=== PATIENT | male | born 1935 | race Caucasian/White ===

== ENCOUNTER → 2017-01-15 | Outpatient (CLI) | payer MEDICARE ==
[~2017-01-15] MED LIST: ASPI-COR81 M1 PO; CARBAMAZEPINE200 M2 PO; COQ10150 MG PO; FLAX SEED OIL1000 MG PO; LIPITOR40 MG PO; METOPROLOL50 MG PO; MULTIPLE VITAMI1 CAP PO; PAROXETINE20 MG PO; TAMSULOSIN HYD0.4 MG PO; VITAMIN D32000 I1 PO; ZANTAC150 MG PO
== END | disposition home or self-care (01) ==
LOC: CT 02:13
DX: N20.0 Calculus of kidney (principal); K57.30 Diverticulosis of large intestine without perforation or abscess without bleeding; R10.11 Right upper quadrant pain; R19.01 Right upper quadrant abdominal swelling, mass and lump; I25.10 Atherosclerotic heart disease of native coronary artery without angina pectoris; I10 Essential (primary) hypertension; Z90.49 Acquired absence of other specified parts of digestive tract

== ENCOUNTER → 2017-02-04 | Day surgery (SDC) | payer MEDICARE ==
[~2017-02-04] VITALS: Ht 177.8 cm; Wt 88.5 kg
[~2017-02-04] MED LIST changes: +TOPCARE OMEPRAZ20 MG PO
--- NOTE | ~2017-02-04 | O ---
[place], [place] OPERATIVE NOTE [id number] UNIT #: [id number] ROOM: DOCTOR: ALXEA RAMIREZ MD BIRTHDATE: [birth year] DOS: 02/04/2017 GASTROENDOSCOPIC REPORT INDICATIONS: The patient has presented with chief complaint of dysphagia to solid food, difficulty repeatedly with swallow. The patient with left lower quadrant and right lower quadrant pain. The patient has had a CT scan of the abdomen without any acute concerning finding. PAST MEDICAL HISTORY: Reflux, hypertension, hyperlipidemia, history of arthritis, tremens. SOCIAL HISTORY: Nonsmoker, nonalcohol consumer. PAST SURGICAL HISTORY: Cholecystectomy. ALLERGIES: To no known medication. FAMILY HISTORY: Noncontributory. PROCEDURE: Today's procedure part of investigation is panendoscopy plus biopsy plus balloon dilation. PREMEDICATION: Versed and Diprivan. SCOPE: Olympus forward-viewing gastroscope Q10 video. REPORT: After putting the patient in the left lateral position and application of lubricant to the scope, the scope was introduced; thereafter, under direct visualization, advanced through the length of the esophagus without difficulty. Esophageal stricture, particularly at distal esophagus which is benign noticed. Gastritis seen. Duodenal bulb, second and third part within normal limit. Antrum was biopsied for H. pylori. The patient was gradually extubated to proximal stomach, a balloon size 20 was introduced into the gastric pouch, up to size 18 was utilized and esophageal dilation was performed. The patient extubated, tolerated procedure well. IMPRESSION: Benign esophageal stricture, status post balloon dilation, gastritis, status post biopsy. PLAN AND DISCUSSION: Omeprazole 20 mg 1 q. day is going to be recommended. We are going to proceed with colonoscopy. Thank you very much indeed. GASTROENDOSCOPIC REPORT INDICATIONS: The patient has presented with chief complaint of abdominal pain undergoing investigation. [place], [place] OPERATIVE NOTE NAME: JARVIS TOLBERT UNIT #: [id number] ROOM: DOCTOR: ALEXA RAMIREZ MD BIRTHDATE: [birth year] PROCEDURE: Today's procedure part of investigation is colonoscopy plus polypectomy. PREMEDICATION: Versed and Diprivan. SCOPE: Olympus forward viewing colonoscope 10L video. REPORT: After putting the patient in the left lateral position and application of lubricant to the scope, the scope was introduced; thereafter, under direct visualization, advanced through the length of colon without difficulty. Colon mucosa and vascularity carefully examined. Severe diverticulosis coli with presence of diverticula of severe degree in the left transverse and ascending colon was identified. Base of the cecum explored, appendiceal orifice identified. Sessile polypoid lesion from hepatic flexure with piecemeal polypectomy was removed. The patient extubated, tolerated the procedure well. IMPRESSION: Severe diverticulosis coli. Sessile polypoid lesion, hepatic flexure, status post piecemeal polypectomy. PLAN AND DISCUSSION: High fiber diet. ACTIVITY: Ad shanti. FOLLOWUP: Routinely with you in office, p.r.n. visit with us in GI Clinic. Thank you very much indeed for your kind referral. ALEXA RAMIREZ MD CM:OPRECORD:OPERATIVE NOTE [phone] [facility] ALEXA RAMIREZ MD 02/04/171946 interface
[2017-02-04 15:10] VITALS: BP 147/62
[2017-02-04 16:48] VITALS: BP 121/76
[2017-02-04 17:03] VITALS: BP 124/71
[2017-02-04 17:18] VITALS: BP 128/70
[2017-02-04 17:33] VITALS: BP 126/72
== END | disposition home or self-care (01) ==
LOC: SDC 02-01 08:45
DX: K63.5 Polyp of colon (principal); K57.30 Diverticulosis of large intestine without perforation or abscess without bleeding; K29.50 Unspecified chronic gastritis without bleeding; K22.2 Esophageal obstruction; I10 Essential (primary) hypertension; K21.9 Gastro-esophageal reflux disease without esophagitis; E78.5 Hyperlipidemia, unspecified; M19.90 Unspecified osteoarthritis, unspecified site

== ENCOUNTER → 2017-05-05 | Outpatient (CLI) | payer MEDICARE ==
[2017-05-05 10:23] LABS: HEMOGLOBIN A1c 6.2 % (4.8-5.6)
[2017-05-09 19:07] LABS: METHYLMALONIC ACID 706961 206 nmol/L (0-378)
== END | disposition home or self-care (01) ==
LOC: LAB 09:28
PROVIDERS: Psychiatry & Neurology Neurology
DX: G60.9 Hereditary and idiopathic neuropathy, unspecified (principal); R20.2 Paresthesia of skin; R20.0 Anesthesia of skin

== ENCOUNTER → 2017-08-17 | Outpatient (CLI) | payer MEDICARE | END | disposition home or self-care (01) | LOC: CT 10:45 | DX: I67.82 Cerebral ischemia (principal); R29.898 Other symptoms and signs involving the musculoskeletal system; H81.20 Vestibular neuronitis, unspecified ear ==

== ENCOUNTER 2018-06-02 10:36 | Inpatient (IN) | payer MEDICARE ==
[~2018-06-02] VITALS: Ht 175.3 cm; Wt 89.1 kg
--- NOTE | ~2018-06-02 | PR ---
[place], [place] PROGRESS NOTE NAME: [facility] #: [id number] UNIT #: [id number] ROOM: 511 DOCTOR: LALO ARAUJO MD BIRTHDATE: [birth year] DOS: 06/03/2018 CARDIOLOGY PROGRESS NOTE SUBJECTIVE: The patient was seen today at his bedside with his in attendance. He is an 83-year-old man who presented to the hospital with syncopal episodes. Initially, we felt that this was due to dehydration. However, review of monitor strips and his echocardiogram shows that he is truly in atrial flutter with a slow ventricular response. The flutter waves were masked by his tremor, which was causing significant artifact on the electrocardiogram and hiding the flutter waves. Overnight, he did have several pauses. The longest of these was 4.6 seconds. His metoprolol was withheld and today his heart rate does seem to be better, although he continues to have occasional 2 second pauses. In addition, he is orthostatic. PHYSICAL EXAMINATION: VITAL SIGNS: Today his pulse is about 60 and irregular, blood pressure is 157/82. He is afebrile. NECK: Supple. He has no jugular distention. Carotids are full. LUNGS: Respirations are unlabored. His chest is clear. HEART: Has an irregular rhythm. He does have an occasional fourth heart sound. There is no third heart sound or significant murmur. ABDOMEN: Soft and normally active. EXTREMITIES: Showed no edema. DIAGNOSTIC STUDIES: Echocardiography done on 06/02/2018 showed mild left ventricular dilation with mild concentric left ventricular hypertrophy, ejection fraction is 65%. The left atrium is mildly dilated. Aortic valve leaflets are sclerotic, but open well. Review of his monitor strips does show atrial flutter with a slow ventricular response. IMPRESSION: 1. Near syncope and collapse. 2. Sick sinus syndrome. The patient does have atrial flutter with a very slow ventricular response. This is probably exacerbated by his beta josh therapy. PLAN: The patient is at increased risk for stroke with a [id number] score of 3. I have discussed anticoagulation therapy with him and he has agreed to start Xarelto. For now we will continue to monitor him and withhold all rate slowing medications. If his heart rate continues to improve, then upon discharge, we will have him wear a 30-day event recorder to make sure that he does not have tachycardia or bradycardia after discharge. If he continues to have severe bradycardia off of metoprolol, then he will be referred for pacemaker insertion. I thank the hospitalist physicians for asking our advice regarding his care. [place], [place] PROGRESS NOTE NAME: JARVIS TOLBERT UNIT #: [id number] ROOM: 511 DOCTOR: LALO ARAUJO MD BIRTHDATE: [birth year] LALO ARAUJO MD CM:PNTRANS [id number] LALO ARAUJO MD 06/03/182136 interface
--- NOTE | ~2018-06-02 | EKG ---
[place], [place] ELECTROCARDIOGRAM REPORT NAME: JARVIS TOLBERT UNIT #: [id number] ROOM: 511 DOCTOR: APRIL DRAFT REPORT BIRTHDATE: [birth year] [facility] Test Date: 2018-06-02 Test Time: 10:47:29 Pat Name: JARVIS TOLBERT Department: Room: 511 Gender: M [employer] Operator: SHAHLA : 1935 Requested By: JATIN JEFFERSON Order Number: [id number] Reading MD: Colt Lewis MD Measurements Intervals [place] Rate: 65 P: 0 AK: 69 QRS: 50 QRSD: 101 T: -76 QT: 395 QTc: 411 Interpretive Statements Marked baseline artifact makes interpretation difficult Possible atrial flutter Poor precordial R-wave progression Electronically Signed On 06-02-2018 15:18:42 PDT by Colt Lewis MD CM:EKGRPT:ELECTROCARDIOGRAM REPORT [id number] JATIN JEFFERSON EPIPHANY DRAFT REPORT JATIN JEFFERSON
--- NOTE | ~2018-06-02 | PR ---
[place], [place] PROGRESS NOTE NAME: JARVIS TOLBERT [facility] #: [id number] UNIT #: [id number] ROOM: 511 DOCTOR: LALO ARAUJO MD BIRTHDATE: [birth year] DOS: 06/04/2018 CARDIOLOGY PROGRESS NOTE SUBJECTIVE: The patient was seen at his bedside today on 06/04/2018 for followup of bradycardia and newly documented atrial flutter. His was in attendance. He is an 83-year-old man, who presented to the hospital with syncopal episodes. These were initially felt to be due to dehydration; however, review of monitor strips and his echocardiogram showed that he truly was having episodes of atrial flutter with a slow ventricular response. Flutter waves were masked by his tremor, which was causing significant artifact on the electrocardiogram and hiding the flutter waves. His beta-josh was stopped because he was having periods of severe bradycardia with pauses of up to 4.6 seconds. Within 36 hours, his heart rate improved and his resting pulse is now in the 60 to 80 range. He feels considerably better. PHYSICAL EXAMINATION: VITAL SIGNS: Today, his pulse is 70 and irregularly irregular, blood pressure is 123/83. He is afebrile. NECK: Supple. He has no jugular distention. Carotids are full. LUNGS: Respirations are unlabored. His chest is clear to auscultation and percussion. HEART: Has an irregularly irregular rhythm without murmurs or gallops. ABDOMEN: Soft and normally active. EXTREMITIES: Showed no edema. LABORATORY DATA: I reviewed his monitor today and he continues to have atrial flutter with slow ventricular response. IMPRESSION: 1. Near syncope with collapse. 2. Sick sinus syndrome. The patient has atrial flutter with slow ventricular response, probably exacerbated by beta-josh therapy. PLAN: No other cardiac workup is being considered as an inpatient. I believe the patient can be discharged to home at this time. We will continue his anticoagulation because of a CHADS-VASc score of 3. I will have him wear a 30-day event recorder (MCOT) after discharge. If he continues to have episodes of very fast or very slow heartbeats, we will refer him to Electrophysiology to consider placement of pacemaker and further medical therapy of his arrhythmias. I thank the hospitalist service for asking our advice regarding his care and I have discussed his management with the nurse practitioner, Tiara Reddy. [place], [place] PROGRESS NOTE NAME: JARVIS TOLBERT UNIT #: [id number] ROOM: 511 DOCTOR: LALO ARAUJO MD BIRTHDATE: [birth year] LALO ARAUJO MD CM:JEFFREY [id number] LALO ARAUJO MD 06/04/18 2344 interface
[2018-06-02 10:40] VITALS: BP 157/70
[2018-06-02] MEDS ORDERED: PAROXETINE20 MG PO (10:54)
[2018-06-02] MEDS ORDERED: OMEPRAZOLE40 MG PO (10:54)
[2018-06-02] MEDS ORDERED: LIPITOR40 MG PO (10:54)
[2018-06-02 10:55] LABS: BASO % 0.3 % (0.0-1.0); EOS # 0.1 10*3/uL (0.0-0.4); EOS % 0.8 % (1.0-4.0); HEMATOCRIT 47.1 % (42.0-52.0); HEMOGLOBIN 15.6 g/dl (14.0-18.0); LYMPH # 1.4 10*3/uL (1.3-4.4); LYMPH % 18.5 % (27.0-41.0); MEAN CELL VOLUME 97.7 fl (80.0-94.0); MEAN CORPUSCULAR HGB 32.4 pg (27.0-31.0); MEAN CORPUSCULAR HGB CONC 33.1 g/dl (33.0-37.0); MEAN PLATELET VOLUME 10.4 fl (9.6-12.3); MONO # 0.4 10*3/uL (0.1-1.0); MONO % 4.6 % (3.0-9.0); NEUT # 5.9 10*3/uL (2.3-7.9); NEUT % 75.3 % (47.0-73.0); PLATELET COUNT AUTOMATED 197 10*3/uL (130-400); RED BLOOD COUNT 4.82 10*6/uL (4.50-5.90); RED CELL DISTRI WIDTH 12.8 % (0-14.5); WHITE BLOOD COUNT 7.8 10*3/uL (4.8-10.8)
[2018-06-02] MEDS ORDERED: MULTIVITAMINS1 EAC5 PO (10:55)
[2018-06-02] MEDS ORDERED: TAMSULOSIN HCL0.4 MG PO (10:55)
[2018-06-02] MEDS ORDERED: METOPROLOL SUCC50 M1 PO (10:55)
[2018-06-02] MEDS ORDERED: ASPIRIN81 M1 PO (10:57)
[2018-06-02] MEDS ORDERED: CO Q10100 MG PO (10:57)
[2018-06-02] MEDS ORDERED: SV FLAXSEED OI1 EACH PO (10:57)
[2018-06-02] MEDS ORDERED: VITAMIN D32000 UNIT PO (10:58)
[2018-06-02] MEDS ORDERED: CINNAMON BARK1 GM MC (10:58)
[2018-06-02 11:05] LABS: ACT PARTIAL THROMBO TIME 25.9 SECONDS (20.8-31.5); INTERNATIONAL NORM RATIO 1.1 (2.0-3.5)
[2018-06-02 11:12] LABS: ALKALINE PHOSPHATASE 84 U/L (45-117); BUN 17 mg/dl (7-24); CHLORIDE 103 mmol/L (98-107); CREATININE 1.41 mg/dL (0.70-1.30); LIPASE 163 U/L (73-393); POTASSIUM 4.4 mmol/L (3.5-5.1); SGOT/AST 19 IU/L (3-35); SGPT/ALT 30 U/L (12-78); SODIUM 139 mmol/L (136-145); TOTAL PROTEIN 7.5 gm/dL (6.4-8.2)
[2018-06-02 11:13] LABS: TROPONIN I < 0.015 ng/ml (<0.045)
[2018-06-02 13:05] VITALS: BP 134/80
[2018-06-02 14:27] VITALS: BP 134/80
[2018-06-02 15:17] LABS: BILIRUBIN NEGATIVE (NEGATIVE); BLOOD NEGATIVE (NEGATIVE); CLARITY CLEAR (CLEAR); COLOR YELLOW (YELLOW); GLUCOSE NEGATIVE (NEGATIVE); KETONE NEGATIVE (NEGATIVE); LEUKO ESTERASE NEGATIVE (NEGATIVE); NITRITE NEGATIVE (NEGATIVE); UROBILINOGEN 0.2 E.U./dl (0.2-1.0)
[2018-06-02 15:26] LABS: EPITHELIAL CELLS 0-2; RBC 0-2 rbc/hpf (0-2); WBC 0-2 wbc/hpf (0-5)
[2018-06-02 15:27] LABS: BACTERIA TRACE; MUCOUS TRACE
[2018-06-02 16:00] VITALS: BP 119/94
[2018-06-02 20:00] VITALS: BP 164/77
[2018-06-03] VITALS: BP 134/75
[2018-06-03 06:14] LABS: BASO % 0.7 % (0.0-1.0); EOS # 0.1 10*3/uL (0.0-0.4); EOS % 1.2 % (1.0-4.0); HEMATOCRIT 42.1 % (42.0-52.0); LYMPH # 1.9 10*3/uL (1.3-4.4); LYMPH % 31.6 % (27.0-41.0); MEAN CELL VOLUME 97.9 fl (80.0-94.0); MEAN CORPUSCULAR HGB 32.6 pg (27.0-31.0); MEAN CORPUSCULAR HGB CONC 33.3 g/dl (33.0-37.0); MEAN PLATELET VOLUME 11.2 fl (9.6-12.3); MONO # 0.5 10*3/uL (0.1-1.0); MONO % 8.1 % (3.0-9.0); NEUT # 3.4 10*3/uL (2.3-7.9); NEUT % 57.9 % (47.0-73.0); PLATELET COUNT AUTOMATED 139 10*3/uL (130-400); RED CELL DISTRI WIDTH 13.1 % (0-14.5); WHITE BLOOD COUNT 5.9 10*3/uL (4.8-10.8)
[2018-06-03 06:33] LABS: ALBUMIN 3.5 gm/dl (3.1-4.5); CHLORIDE 108 mmol/L (98-107); POTASSIUM 4.7 mmol/L (3.5-5.1); SODIUM 144 mmol/L (136-145)
[2018-06-03 06:44] LABS: ALKALINE PHOSPHATASE 64 U/L (45-117); BUN 16 mg/dl (7-24); CHOLESTEROL 129 mg/dL (<200); FREE T4 1.09 ng/dl (0.76-1.46); HDL CHOLESTEROL 35 mg/dl (40-60); LDL CHOLESTEROL 48 mg/dL (9-159); PHOSPHOROUS 3.2 mg/dL (2.5-4.9); SGOT/AST 15 IU/L (3-35); SGPT/ALT 28 U/L (12-78); TOTAL PROTEIN 6.4 gm/dL (6.4-8.2); TRIGLYCERIDES 229 mg/dl (<150); VLDL CHOLESTEROL 46 mg/dL (6-40)
[2018-06-03 07:02] LABS: VITAMIN D, 25-HYDROXY 39.4 ng/mL (30-100)
[2018-06-03 08:00] VITALS: BP 149/73
[2018-06-03 12:00] VITALS: BP 157/82
[2018-06-03 16:00] VITALS: BP 146/77
[2018-06-03 20:00] VITALS: BP 153/88
[2018-06-04] VITALS: BP 152/76
[2018-06-04 08:00] VITALS: BP 162/82; BP 180/80
[2018-06-04] MEDS ORDERED: XARE20MG PO (08:17)
[2018-06-04 12:00] VITALS: BP 133/69
[2018-06-04 16:00] VITALS: BP 123/83
== END 2018-06-04 16:51 | disposition home or self-care (01) | DRG 308 ==
LOC: ED 10:36 → 5E 11:50 → EDHOLD 11:50 → 5E 12:11
PROVIDERS: Nurse Practitioner Family; Registered Nurse
DX: I48.92 Unspecified atrial flutter (principal); N17.0 Acute kidney failure with tubular necrosis; I49.5 Sick sinus syndrome; R07.9 Chest pain, unspecified; N18.3 Chronic kidney disease, stage 3 (moderate); E78.5 Hyperlipidemia, unspecified; F41.1 Generalized anxiety disorder; R55 Syncope and collapse; D53.9 Nutritional anemia, unspecified; K21.9 Gastro-esophageal reflux disease without esophagitis; F41.9 Anxiety disorder, unspecified; I12.9 Hypertensive chronic kidney disease with stage 1 through stage 4 chronic kidney disease, or unspecified chronic kidney disease; N40.0 Benign prostatic hyperplasia without lower urinary tract symptoms; G25.0 Essential tremor; Z90.49 Acquired absence of other specified parts of digestive tract; Z79.82 Long term (current) use of aspirin; Z79.899 Other long term (current) drug therapy

== ENCOUNTER → 2019-10-23 | Emergency (ER) | payer MEDICARE ==
[~2019-10-23] VITALS: Ht 175.2 cm; Wt 78.5 kg
[~2019-10-23] MED LIST changes: +ASPIRIN81 M1 PO; +CINNAMON BARK1 GM MC; +CO Q10100 MG PO; +METOPROLOL SUCC50 M1 PO; +MULTIVITAMINS1 EAC5 PO; +OMEPRAZOLE40 MG PO; +SV FLAXSEED OI1 EACH PO; +TAMSULOSIN HCL0.4 MG PO; +VITAMIN D32000 UNIT PO; +XARE20MG PO
[2019-10-23 10:21] LABS: BASO % 0.2 % (0.0-1.0); HEMATOCRIT 52.6 % (42.0-52.0); HEMOGLOBIN 17.5 g/dl (14.0-18.0); LYMPH # 1.5 10*3/uL (1.3-4.4); LYMPH % 9.1 % (27.0-41.0); MEAN CELL VOLUME 95.5 fl (80.0-94.0); MEAN CORPUSCULAR HGB 31.8 pg (27.0-31.0); MEAN CORPUSCULAR HGB CONC 33.3 g/dl (33.0-37.0); MEAN PLATELET VOLUME 10.2 fl (9.6-12.3); MONO # 1.1 10*3/uL (0.1-1.0); MONO % 6.5 % (3.0-9.0); NEUT # 13.5 10*3/uL (2.3-7.9); PLATELET COUNT AUTOMATED 261 10*3/uL (130-400); RED BLOOD COUNT 5.51 10*6/uL (4.50-5.90); RED CELL DISTRI WIDTH 13.5 % (0-14.5); WHITE BLOOD COUNT 16.2 10*3/uL (4.8-10.8)
[2019-10-23 10:37] LABS: ALBUMIN 3.6 gm/dl (3.1-4.5); ALKALINE PHOSPHATASE 203 U/L (45-117); BUN 45 mg/dl (7-24); CHLORIDE 102 mmol/L (98-107); POTASSIUM 4.9 mmol/L (3.5-5.1); SGOT/AST 43 IU/L (3-35); SGPT/ALT 130 U/L (12-78); SODIUM 137 mmol/L (136-145); TOTAL PROTEIN 7.8 gm/dL (6.4-8.2)
[2019-10-23 10:38] LABS: TROPONIN I < 0.015 ng/ml (<0.045)
[2019-10-23 10:45] LABS: ACT PARTIAL THROMBO TIME 29.5 SECONDS (20.0-32.1); INTERNATIONAL NORM RATIO 1.1 (2.0-3.5)
[2019-10-23 14:40] VITALS: BP 158/88
== END ==
LOC: ED 09:50
PROVIDERS: Emergency Medicine
DX: R42 Dizziness and giddiness (principal); R26.89 Other abnormalities of gait and mobility; R09.81 Nasal congestion; R51 Headache; R05 Cough; I12.9 Hypertensive chronic kidney disease with stage 1 through stage 4 chronic kidney disease, or unspecified chronic kidney disease; N18.9 Chronic kidney disease, unspecified; E78.1 Pure hyperglyceridemia; I48.91 Unspecified atrial fibrillation; Z79.899 Other long term (current) drug therapy

== ENCOUNTER 2019-11-24 08:52 | Emergency (ER) | payer MEDICARE ==
[~2019-11-24] VITALS: Ht 172.7 cm; Wt 81.6 kg
[2019-11-24 08:59] VITALS: BP 168/89
[2019-11-24 09:35] LABS: BASO % 0.3 % (0.0-1.0); EOS % 0.5 % (1.0-4.0); HEMATOCRIT 48.3 % (42.0-52.0); HEMOGLOBIN 15.7 g/dl (14.0-18.0); LYMPH # 1.1 10*3/uL (1.3-4.4); LYMPH % 17.6 % (27.0-41.0); MEAN CELL VOLUME 98.6 fl (80.0-94.0); MEAN CORPUSCULAR HGB CONC 32.5 g/dl (33.0-37.0); MONO # 0.4 10*3/uL (0.1-1.0); NEUT # 4.7 10*3/uL (2.3-7.9); NEUT % 74.6 % (47.0-73.0); PLATELET COUNT AUTOMATED 193 10*3/uL (130-400); RED CELL DISTRI WIDTH 13.5 % (0-14.5); WHITE BLOOD COUNT 6.3 10*3/uL (4.8-10.8)
[2019-11-24 09:52] LABS: ALBUMIN 3.6 gm/dl (3.1-4.5); ALKALINE PHOSPHATASE 107 U/L (45-117); BUN 12 mg/dl (7-24); CHLORIDE 107 mmol/L (98-107); POTASSIUM 4.2 mmol/L (3.5-5.1); SGOT/AST 18 IU/L (3-35); SGPT/ALT 26 U/L (12-78); SODIUM 143 mmol/L (136-145); TOTAL PROTEIN 6.8 gm/dL (6.4-8.2)
[2019-11-24 10:10] LABS: ACT PARTIAL THROMBO TIME 27.8 SECONDS (20.0-32.1)
[2019-11-24] MEDS ORDERED: AUGMENTIN 875-875 MG PO (11:13)
== END 2019-11-24 11:21 | disposition home or self-care (01) ==
LOC: ED 08:52
PROVIDERS: Nurse Practitioner Family
DX: R04.0 Epistaxis (principal); I10 Essential (primary) hypertension; E78.1 Pure hyperglyceridemia; Z79.899 Other long term (current) drug therapy; Z90.49 Acquired absence of other specified parts of digestive tract

== ENCOUNTER 2019-11-26 13:03 | Emergency (ER) | payer MEDICARE ==
[~2019-11-26 13:03] MED LIST changes: +AUGMENTIN 875-875 MG PO
[2019-11-26 13:31] VITALS: BP 144/87
[2019-11-26] MEDS ORDERED: NASAL SPRAY88 ML NAS (15:55)
== END 2019-11-26 16:10 | disposition home or self-care (01) ==
LOC: ED 13:03
DX: R04.0 Epistaxis (principal); I10 Essential (primary) hypertension; I48.91 Unspecified atrial fibrillation; Z79.2 Long term (current) use of antibiotics; Z79.899 Other long term (current) drug therapy

== ENCOUNTER 2023-02-25 18:30 | Emergency (ER) | payer MEDICARE ==
[~2023-02-25 18:30] MED LIST changes: +Carafate1 GM PO; +ELIQUIS5 M1 PO; +NASAL SPRAY88 ML NAS; +PANTOPRAZOLE SO40 MG PO
[2023-02-25 18:39] VITALS: BP 140/82
[2023-02-25 19:09] LABS: BASO % 0.5 % (0.0-1.0); EOS # 0.1 10*3/uL (0.0-0.4); EOS % 0.8 % (1.0-4.0); HEMATOCRIT 41.3 % (42.0-52.0); LYMPH # 1.1 10*3/uL (1.3-4.4); LYMPH % 16.8 % (27.0-41.0); MEAN CELL VOLUME 97.4 fl (80.0-94.0); MEAN CORPUSCULAR HGB 32.1 pg (27.0-31.0); MEAN CORPUSCULAR HGB CONC 32.9 g/dl (33.0-37.0); MEAN PLATELET VOLUME 9.9 fl (9.6-12.3); MONO # 0.5 10*3/uL (0.1-1.0); MONO % 7.1 % (3.0-9.0); NEUT # 4.7 10*3/uL (2.3-7.9); NEUT % 73.5 % (47.0-73.0); NUCLEATED RED BLOOD CELL 0.3 % (0.0-0.0); PLATELET COUNT AUTOMATED 238 10*3/uL (130-400); RED BLOOD COUNT 4.24 10*6/uL (4.50-5.90); RED CELL DISTRI WIDTH 12.5 % (0-14.5); WHITE BLOOD COUNT 6.4 10*3/uL (4.8-10.8)
[2023-02-25 19:19] LABS: ACT PARTIAL THROMBO TIME 31.6 SECONDS (20.0-32.1); INTERNATIONAL NORM RATIO 1.1 (2.0-3.5)
[2023-02-25 19:31] LABS: ALKALINE PHOSPHATASE 115 U/L (46-116); BUN 13 mg/dl (9-23); CHLORIDE 103 mmol/L (98-107); POTASSIUM 4.2 mmol/L (3.4-5.1); SGPT/ALT 15 U/L (10-49); TOTAL PROTEIN 7.1 gm/dL (6.0-8.0)
[2023-02-25 20:35] LABS: BILIRUBIN Negative (Negative); BLOOD 1+ (Negative); CLARITY Cloudy (Clear); COLOR Yellow (Yellow); GLUCOSE Negative (Negative); KETONE Negative (Negative); LEUKO ESTERASE Negative (Negative); NITRITE Negative (Negative); SPECIFIC GRAVITY 1.015 (1.001-1.030)
[2023-02-25 20:56] LABS: BACTERIA 1+; MUCOUS TRACE; WBC 0-2 wbc/hpf (0-5)
[2023-02-25] MEDS ORDERED: METHYLPREDNISOL32 MG PO (22:19)
== END 2023-02-25 22:39 | disposition home or self-care (01) ==
LOC: ED 18:30
PROVIDERS: Emergency Medicine
DX: D69.0 Allergic purpura (principal); I10 Essential (primary) hypertension; Z90.49 Acquired absence of other specified parts of digestive tract; Z98.890 Other specified postprocedural states; Z79.899 Other long term (current) drug therapy

== ENCOUNTER → 2023-03-02 | Outpatient (CLI) | payer MEDICARE ==
[~2023-03-02] MED LIST changes: +METHYLPREDNISOL32 MG PO
[2023-03-02 12:15] LABS: BASO % 0.4 % (0.0-1.0); HEMATOCRIT 42.7 % (42.0-52.0); LYMPH # 1.4 10*3/uL (1.3-4.4); LYMPH % 12.2 % (27.0-41.0); MEAN CELL VOLUME 97.3 fl (80.0-94.0); MEAN CORPUSCULAR HGB 31.4 pg (27.0-31.0); MEAN CORPUSCULAR HGB CONC 32.3 g/dl (33.0-37.0); MEAN PLATELET VOLUME 9.7 fl (9.6-12.3); MONO # 0.6 10*3/uL (0.1-1.0); NEUT # 8.9 10*3/uL (2.3-7.9); NEUT % 80.5 % (47.0-73.0); PLATELET COUNT AUTOMATED 260 10*3/uL (130-400); RED BLOOD COUNT 4.39 10*6/uL (4.50-5.90); RED CELL DISTRI WIDTH 12.7 % (0-14.5); WHITE BLOOD COUNT 11.1 10*3/uL (4.8-10.8)
[2023-03-02 12:58] LABS: ALKALINE PHOSPHATASE 98 U/L (46-116); BUN 16 mg/dl (9-23); CHLORIDE 100 mmol/L (98-107); SGPT/ALT 10 U/L (10-49); TOTAL PROTEIN 7.4 gm/dL (6.0-8.0)
[2023-03-03 06:08] LABS: HBSAG Negative (Negative); HEP B CORE AB, IGM Negative (Negative); HEPATITIS C ANTIBODY Non Reactive (Non Reactive)
== END | disposition home or self-care (01) ==
LOC: LAB 11:37
PROVIDERS: ATTEND Internal Medicine
DX: I77.6 Arteritis, unspecified (principal); R53.81 Other malaise

== ENCOUNTER 2023-04-12 04:18 | Emergency (ER) | payer MEDICARE ==
[~2023-04-12] VITALS: Ht 175.2 cm; Wt 75.7 kg
[2023-04-12] MEDS ORDERED: CARBIDOPA-LEVO1 EAC1 PO (04:40)
[2023-04-12 04:43] VITALS: BP 115/59
[2023-04-12 05:41] LABS: INTERNATIONAL NORM RATIO 1.2 (2.0-3.5)
[2023-04-12 05:54] LABS: ALKALINE PHOSPHATASE 93 U/L (46-116); BUN 18 mg/dl (9-23); CHLORIDE 102 mmol/L (98-107); LIPASE 32 U/L (12-53); POTASSIUM 4.2 mmol/L (3.4-5.1); SGPT/ALT 29 U/L (10-49); TOTAL PROTEIN 6.2 gm/dL (6.0-8.0)
[2023-04-12 06:02] LABS: BASO % 0.1 % (0.0-1.0); EOS % 0.2 % (1.0-4.0); HEMATOCRIT 37.6 % (42.0-52.0); LYMPH # 0.3 10*3/uL (1.3-4.4); LYMPH % 3.9 % (27.0-41.0); MEAN CELL VOLUME 97.2 fl (80.0-94.0); MEAN CORPUSCULAR HGB 32.8 pg (27.0-31.0); MEAN CORPUSCULAR HGB CONC 33.8 g/dl (33.0-37.0); MEAN PLATELET VOLUME 9.9 fl (9.6-12.3); MONO # 0.4 10*3/uL (0.1-1.0); MONO % 4.6 % (3.0-9.0); NEUT # 7.5 10*3/uL (2.3-7.9); NEUT % 88.6 % (47.0-73.0); PLATELET COUNT AUTOMATED 144 10*3/uL (130-400); RED BLOOD COUNT 3.87 10*6/uL (4.50-5.90); RED CELL DISTRI WIDTH 14.3 % (0-14.5); WHITE BLOOD COUNT 8.4 10*3/uL (4.8-10.8)
[2023-04-12 07:00] LABS: BILIRUBIN Negative (Negative); BLOOD 2+ (Negative); CLARITY Clear (Clear); COLOR Yellow (Yellow); GLUCOSE Negative (Negative); KETONE Trace (Negative); LEUKO ESTERASE Negative (Negative); NITRITE Negative (Negative); PH 5.5 (4.5-8.0); SPECIFIC GRAVITY 1.015 (1.001-1.030)
[2023-04-12 07:14] LABS: BACTERIA 1+; EPITHELIAL CELLS 0-2; RBC 16-20 rbc/hpf (0-2)
[2023-04-12] MEDS ORDERED: OMNICEF300 MG PO (08:56)
== END 2023-04-12 10:01 | disposition home or self-care (01) ==
LOC: ED 04:18
PROVIDERS: Emergency Medicine
DX: N39.0 Urinary tract infection, site not specified (principal); Z90.49 Acquired absence of other specified parts of digestive tract; Z98.890 Other specified postprocedural states; I10 Essential (primary) hypertension

== ENCOUNTER 2024-03-17 08:07 | Emergency (ER) | payer MEDICARE ==
[~2024-03-17] VITALS: Ht 175.2 cm; Wt 77.1 kg
[~2024-03-17 08:07] MED LIST changes: +CARBIDOPA-LEVO1 EAC1 PO; +OMNICEF300 MG PO
[2024-03-17 08:15] VITALS: BP 141/75
[2024-03-17] MEDS ORDERED: [UNRECOGNIZED DRUG - OTHER] NAS ONE (08:25)
[2024-03-17] MEDS ORDERED: Lidocaine Hydrochloride 2 ML AMP SC ONE (08:25)
[2024-03-17] MEDS ORDERED: Gelatin Sponge 1 EACH SPON T ONE (08:25)
[2024-03-17 08:47] LABS: BASO % 0.2 % (0.0-1.0); HEMATOCRIT 34.8 % (42.0-52.0); LYMPH # 0.8 10*3/uL (1.3-4.4); LYMPH % 7.1 % (27.0-41.0); MEAN CORPUSCULAR HGB 32.1 pg (27.0-31.0); MEAN CORPUSCULAR HGB CONC 32.8 g/dl (33.0-37.0); MEAN PLATELET VOLUME 10.4 fl (9.6-12.3); MONO # 0.3 10*3/uL (0.1-1.0); MONO % 2.5 % (3.0-9.0); NEUT # 10.6 10*3/uL (2.3-7.9); NEUT % 89.7 % (47.0-73.0); PLATELET COUNT AUTOMATED 189 10*3/uL (130-400); RED BLOOD COUNT 3.55 10*6/uL (4.50-5.90); RED CELL DISTRI WIDTH 13.5 % (0-14.5); WHITE BLOOD COUNT 11.8 10*3/uL (4.8-10.8)
[2024-03-17 09:01] LABS: ACT PARTIAL THROMBO TIME 25.9 SECONDS (20.0-32.1)
[2024-03-17 09:03] LABS: BUN 35 mg/dl (9-23); CHLORIDE 105 mmol/L (98-107); POTASSIUM 4.3 mmol/L (3.4-5.1)
[2024-03-17] MEDS ORDERED: AMOX-CLAV 875-1 EACH PO (09:54)
== END 2024-03-17 09:50 | disposition home or self-care (01) ==
LOC: ED 08:07
PROVIDERS: Student in an Organized Health Care Education/Training Program
DX: R04.0 Epistaxis (principal); I10 Essential (primary) hypertension; Z90.49 Acquired absence of other specified parts of digestive tract; Z98.890 Other specified postprocedural states

== ENCOUNTER → 2025-08-26 | Day surgery (SDC) | payer MEDICARE, OTHER ==
[~2025-08-26] VITALS: Ht 175.2 cm; Wt 81.6 kg
[~2025-08-26] MED LIST changes: +ALLERGY RELIE15.8 ML INH; +AMITRIPTYLINE10 MG PO; +AMOX-CLAV 875-1 EACH PO; +CIPROFLOXACIN250 MG PO; +Dexamethasone Sodium Phospha 4 MG/ML VIAL IV ONE; +Ketamine Hydrochloride 50 MG/5 ML SYRINGE IV ONE; +Lactated Ringer's Solution 1,000 ML IV ONE; +Lidocaine Hydrochloride 2% 5 ML SDV IV ONE; +Lidocaine Hydrochloride 30 ML VIAL ONE; +Ondansetron Hydrochloride 4 MG/2 ML VIAL IV ONE; +PERCOCET 5-3251 EACH PO; +ROCURONIUM BROMIDE 50 MG/5 ML SYRINGE IV ONE; +SEVOFLURANE 250 ML BOT INH ONE; +SODIUM CHLORIDE 0.9% 1,000 ML IV ONE; +Water, Sterile 10 ML VIAL IV ONE; +ePHEDrine Sulfate 25 MG/5 ML SYRINGE IV ONE
[2025-08-26 08:00] VITALS: BP 190/89
[2025-08-26 12:05] VITALS: BP 157/80
[2025-08-26 12:20] VITALS: BP 149/70
[2025-08-26 12:35] VITALS: BP 169/90
[2025-08-26 12:50] VITALS: BP 160/64
[2025-08-26 13:05] VITALS: BP 153/8
== END | disposition home or self-care (01) ==
LOC: SDC 08-22 10:15
PROVIDERS: ATTEND Surgery
DX: C44.529 Squamous cell carcinoma of skin of other part of trunk (principal); I10 Essential (primary) hypertension; M19.90 Unspecified osteoarthritis, unspecified site; E78.00 Pure hypercholesterolemia, unspecified; M10.9 Gout, unspecified; F41.9 Anxiety disorder, unspecified; G62.9 Polyneuropathy, unspecified; I48.91 Unspecified atrial fibrillation; I77.6 Arteritis, unspecified; Z98.890 Other specified postprocedural states; Z90.49 Acquired absence of other specified parts of digestive tract; Z79.899 Other long term (current) drug therapy